=== PATIENT | female | born 1985 | race African-American/Black ===

== ENCOUNTER 2022-12-05 19:56 | Observation (INO) | payer BC, OTHER ==
[~2022-12-05] VITALS: Ht 157.5 cm; Wt 114.3 kg
== END 2022-12-05 21:18 | disposition home or self-care (01) ==
LOC: LDRP 19:56 → EDBD 19:56
PROVIDERS: ADMIT Obstetrics & Gynecology; ATTEND Obstetrics & Gynecology
DX: O36.8120 Decreased fetal movements, second trimester, not applicable or unspecified (principal); Z3A.20 20 weeks gestation of pregnancy
CPT/HCPCS: 59025; 81002; 94760; G0378